=== PATIENT | female | born 1995 | race Caucasian/White ===

== ENCOUNTER 2024-03-03 08:13 | Observation (INO) | payer OTHER ==
[2024-03-03 08:51] LABS: Appearance Cloudy (Clear); Bacteria Many /HPF (None Seen); Bilirubin Negative (Negative); Blood Negative (Negative); Epithelial Cells Many /HPF (None Seen); Glucose, Urine Negative (Negative); Ketones Negative (Negative); Leukocyte Esterase Negative (Negative); Nitrite Negative (Negative); Protein,Urine Dip 30 (Negative); Specific Gravity 1.025 (1.005-1.030); Urobilinogen 0.2 mg/dL (0.2); WBC 21-50 /HPF (0-5)
[2024-03-03 09:01] LABS: Amphetamine,Urine NEGATIVE (NEGATIVE); Barbiturate,Urine NEGATIVE (NEGATIVE); Benzodiazepine,Urine NEGATIVE (NEGATIVE); Cocaine,Urine NEGATIVE (NEGATIVE); Methadone,Urine NEGATIVE (NEGATIVE); Opiate,Urine NEGATIVE (NEGATIVE); PCP,Urine NEGATIVE (NEGATIVE); THC,Urine POSITIVE (NEGATIVE)
[2024-03-03] MEDS: Lactated Ringers 1,000 ML IV ONE (09:05)
[2024-03-03] MEDS: IMODIUM 2 MG PO PRN (09:06)
[2024-03-03] MEDS: Zofran 4 MG/2 ML VIAL IV PRN (09:06)
[2024-03-03 09:20] LABS: Absolute Neutrophil Ct (ANC) 15.28 x10^3/uL (1.56-6.13); BASOPHIL % 0.2 % (0.1-1.2); Basophil (Absolute #) 0.03 x10^3/uL (0.01-0.08); Eosinophil % 0.2 % (0.7-5.8); Eosinophil (Absolute #) 0.03 x10^3/uL (0.04-0.36); Hematocrit 37.9 % (34.1-44.9); Hemoglobin 12.9 g/dL (11.2-15.7); IMMATURE GRAN # 0.14 x10^3u/L (0.001-0.031); IMMATURE GRAN % 0.8 % (0.001-0.429); Lymphocyte (Absolute #) 0.82 x10^3/uL (1.18-3.74); Lymphocytes % 4.8 % (19.3-51.7); Mean Cell Volume 86.1 fL (79.4-94.8); Mean Corpuscular Hemoglobin 29.3 pg (25.6-32.2); Mean Platelet Volume 9.9 fL (9.4-12.3); Monocyte (Absolute #) 0.86 x10^3/uL (0.24-0.86); Platelet Count 239 x10^3/uL (182-369); Red Cell Distribution Width 12.8 % (11.7-14.4); White Blood Count 17.2 x10^3/uL (3.98-10.04)
[2024-03-03 09:31] LABS: BILIRUBIN,TOTAL 0.3 mg/dL (0.2-1.3); Calcium 9.1 mg/dL (8.4-10.2); Creatinine 1 0.39 mg/dL (0.52-1.04); EST GLOMERULAR FILTRATION RATE 139.9 ML/MIN; Potassium 3.8 mmol/L (3.5-5.1); Total Protein 7.3 g/dL (6.3-8.2)
[2024-03-03 09:54] VITALS: RESP 18
[2024-03-03 10:11] LABS: INFLUENZA A NEGATIVE (NEGATIVE); INFLUENZA B NEGATIVE (NEGATIVE); RESPIRATORY SYNCTIAL VIRUS NEGATIVE (NEGATIVE); SARS-CoV-2 Xpert Express NEGATIVE (NEGATIVE)
[2024-03-03] MEDS ORDERED: TYLENOL 325 MG PO STA (10:22)
[2024-03-03] MEDS: Lactated Ringers 1,000 ML IV SCH (10:42)
[2024-03-03] MEDS: TYLENOL EXTRA STRENGTH 500 MG PO SCH (11:17)
[2024-03-03] MEDS: ROCEPHIN 2 GM/100 ML NACL 2 GM/100 ML IVPB IV SCH (11:24)
[2024-03-03 17:01] VITALS: BP 106/55; PULSE 80; TEMP 98.3; O2SAT 99
== END 2024-03-03 16:45 | disposition home or self-care (01) ==
LOC: OB 08:13
PROVIDERS: ADMIT Obstetrics & Gynecology; ATTEND Obstetrics & Gynecology
DX: Z34.83 Encounter for supervision of other normal pregnancy, third trimester (principal); Z3A.30 30 weeks gestation of pregnancy
CPT/HCPCS: 0241U; 36415; 80053; 80307; 81001; 85025; 87086; G0378; G0379; J0696; J2405; A9270-GY

== ENCOUNTER 2024-05-03 07:22 | Inpatient (IN) | payer OTHER ==
[2024-05-03] MEDS ORDERED: Lactated Ringers 1,000 ML IV ONE (08:28)
[2024-05-03] MEDS ORDERED: Ephedrine Sulfate 50 MG/ML IV PRN ×2 (08:28→17:00)
[2024-05-03] MEDS ORDERED: FENTANYL 2 MCG-BUPIV 0.125%-NS 250 ML Epidur 250 ML EPIDURAL SCH (08:30)
[2024-05-03] MEDS ORDERED: BRETHINE 1 MG/ML SQ PRN (17:00)
[2024-05-03] MEDS ORDERED: XYLOCAINE 1% HCL 20 ML MDV IJ PRN (17:00)
[2024-05-03] MEDS ORDERED: Zofran 4 MG/2 ML VIAL IV PRN (17:00)
[2024-05-03 19:01] LABS: Absolute Neutrophil Ct (ANC) 6.87 x10^3/uL (1.56-6.13); BASOPHIL % 0.3 % (0.1-1.2); Basophil (Absolute #) 0.03 x10^3/uL (0.01-0.08); Hematocrit 34.3 % (34.1-44.9); Hemoglobin 11.4 g/dL (11.2-15.7); IMMATURE GRAN # 0.09 x10^3u/L (0.001-0.031); IMMATURE GRAN % 0.9 % (0.001-0.429); Lymphocyte (Absolute #) 2.37 x10^3/uL (1.18-3.74); Lymphocytes % 22.7 % (19.3-51.7); Mean Cell Volume 84.1 fL (79.4-94.8); Mean Corpuscular Hemoglobin 27.9 pg (25.6-32.2); Mean Corpuscular Hgb Concent. 33.2 g/dL (32.2-35.5); Mean Platelet Volume 10.5 fL (9.4-12.3); Monocyte (Absolute #) 0.99 x10^3/uL (0.24-0.86); Monocytes % 9.5 % (4.7-12.5); Neutrophil % 65.6 % (34.0-71.1); Platelet Count 239 x10^3/uL (182-369); Red Blood Count 4.08 x10^6/uL (3.93-5.22); Red Cell Distribution Width 12.8 % (11.7-14.4); White Blood Count 10.5 x10^3/uL (3.98-10.04)
[2024-05-03 19:41] LABS: ABO TYPING A; Antibody Screen NEGATIVE (NEGATIVE); RH TYPING POSITIVE
[2024-05-03] MEDS: PITOCIN 30 UNITS/ LR 500 ML 30 UNITS/500 ML PLAST..BAG IV SCH (21:00)
[2024-05-03] MEDS: Lactated Ringers 1,000 ML IV SCH (21:13)
[2024-05-03 21:21] LABS: Amphetamine,Urine NEGATIVE (NEGATIVE); Barbiturate,Urine NEGATIVE (NEGATIVE); Benzodiazepine,Urine NEGATIVE (NEGATIVE); Cocaine,Urine NEGATIVE (NEGATIVE); Methadone,Urine NEGATIVE (NEGATIVE); Opiate,Urine NEGATIVE (NEGATIVE); PCP,Urine NEGATIVE (NEGATIVE); THC,Urine POSITIVE (NEGATIVE)
[2024-05-04] MEDS: STADOL 2 MG IV PRN (02:33)
[2024-05-04] MEDS: FENTANYL 2 MCG-BUPIV 0.125%-NS 250 ML Epidur 250 ML EPIDURAL SCH (06:48)
[2024-05-04] MEDS: Lactated Ringers 1,000 ML IV ONE (07:01)
[2024-05-04] MEDS ORDERED: Sensorcaine 0.25% 10 ML ONE ×2 (10:43→14:26)
[2024-05-04] MEDS ORDERED: Xylocaine-Mpf 2% 5 Ml Vial ONE (10:43)
[2024-05-04] MEDS ORDERED: SUBLIMAZE 100 MCG/2 ML ONE ×2 (10:47→14:24)
[2024-05-04] MEDS ORDERED: DEXMEDETOMIDINE 80 MCG/20ML-NS IV ONE (13:00)
[2024-05-04] MEDS ORDERED: Marcaine 0.5%/Epinephrine 10 ML ONE (13:01)
[2024-05-04 15:28] LABS: Appearance Clear (Clear); Bilirubin Negative (Negative); Blood Negative (Negative); Glucose, Urine Negative (Negative); Ketones Negative (Negative); Leukocyte Esterase Negative (Negative); Nitrite Negative (Negative); Ph 7.5 (4.6-8.0); Protein,Urine Dip Negative (Negative); Specific Gravity 1.015 (1.005-1.030); Urobilinogen 0.2 mg/dL (0.2)
[2024-05-04 15:29] LABS: Bacteria None Seen /HPF (None Seen); Epithelial Cells Rare /HPF (None Seen); RBC NONE SEEN /HPF (0-5); WBC NONE SEEN /HPF (0-5)
[2024-05-04] MEDS ORDERED: Restoril 15 MG PO PRN (17:10)
[2024-05-04] MEDS ORDERED: Anucort-HC SUPPOSITORY PR PRN (17:10)
[2024-05-04] MEDS ORDERED: CORTISONE 1% CREAM TP PRN (17:10)
[2024-05-04] MEDS ORDERED: Mylicon 80MG PO PRN (17:10)
[2024-05-04] MEDS ORDERED: Dulcolax 10 MG SUPP PR PRN (17:10)
[2024-05-04] MEDS ORDERED: Ambien 10 MG PO PRN (17:10)
[2024-05-04] MEDS: MOTRIN 400 MG PO PRN (17:42)
[2024-05-04] MEDS: Dermoplast Spray TP PRN (17:44)
[2024-05-04] MEDS: TUCKS TP PRN (17:44)
[2024-05-04] MEDS: Docusate Sodium 100 MG PO SCH (21:30)
[2024-05-04] MEDS: TYLENOL EXTRA STRENGTH 500 MG PO PRN (22:51)
[2024-05-04] MEDS: NORCO 5/325 MG PO PRN (23:22)
[2024-05-05 05:46] LABS: Absolute Neutrophil Ct (ANC) 11.75 x10^3/uL (1.56-6.13); BASOPHIL % 0.1 % (0.1-1.2); Basophil (Absolute #) 0.02 x10^3/uL (0.01-0.08); Eosinophil % 0.1 % (0.7-5.8); Eosinophil (Absolute #) 0.02 x10^3/uL (0.04-0.36); Hematocrit 33.7 % (34.1-44.9); Hemoglobin 11.1 g/dL (11.2-15.7); IMMATURE GRAN # 0.09 x10^3u/L (0.001-0.031); IMMATURE GRAN % 0.6 % (0.001-0.429); Lymphocyte (Absolute #) 2.35 x10^3/uL (1.18-3.74); Lymphocytes % 15.2 % (19.3-51.7); Mean Cell Volume 83.4 fL (79.4-94.8); Mean Corpuscular Hemoglobin 27.5 pg (25.6-32.2); Mean Corpuscular Hgb Concent. 32.9 g/dL (32.2-35.5); Mean Platelet Volume 10.2 fL (9.4-12.3); Monocyte (Absolute #) 1.25 x10^3/uL (0.24-0.86); Monocytes % 8.1 % (4.7-12.5); Neutrophil % 75.9 % (34.0-71.1); Platelet Count 240 x10^3/uL (182-369); Red Blood Count 4.04 x10^6/uL (3.93-5.22); White Blood Count 15.5 x10^3/uL (3.98-10.04)
--- NOTE | 2024-05-05 08:04 | PCM.NOTE ---
Date and Time: 05/05/24802 Subjective Assessment: ppd 1 sp pt resting in bed and doing well able to ambulate and tolerate diet vss afebrile abd; soft uterus; firm lochia; mild hgb; 11 a/p sp ppd 1 anticipate discharge home tomorrow should fu office 3 wks Objective Data Vital Signs: Vital Signs - 24 hr Temp Pulse Resp BP BP Pulse Ox 05/05/24 05:00 98.7 F 81 20 123/73 99 05/04/24 23:20 69 20 134/75 98 05/04/24 20:00 98.3 F 94 H 18 115/65 95 05/04/24 17:40 97.9 F 88 18 123/68 96 05/04/24 17:25 97.9 F 96 H 18 112/58 96 05/04/24 17:10 97.9 F 94 H 20 108/55 97 05/04/24 16:50 97.9 F 109 H 20 123/56 96 05/04/24 16:30 121 H 18 146/65 05/04/24 16:15 84 18 135/79 100 05/04/24 16:00 93 H 18 142/63 100 05/04/24 15:45 88 18 105/54 100 05/04/24 15:30 90 18 147/79 100 05/04/24 15:15 90 18 147/79 100 05/04/24 15:00 77 18 133/71 100 05/04/24 14:45 96 H 18 117/58 100 05/04/24 14:30 98 H 18 123/59 100 05/04/24 14:15 106 H 18 131/68 100 05/04/24 14:00 110 H 18 136/69 100 05/04/24 13:45 102 H 18 123/70 97 05/04/24 13:30 102 H 18 123/70 97 05/04/24 13:15 81 18 125/59 97 05/04/24 13:00 95 H 18 121/61 97 05/04/24 12:45 95 H 18 121/61 97 05/04/24 12:30 76 18 120/67 96 05/04/24 12:15 90 18 131/85 96 05/04/24 12:00 90 18 122/80 97 05/04/24 11:45 90 18 131/85 96 05/04/24 11:30 90 18 124/90 96 05/04/24 11:15 78 18 112/69 97 05/04/24 11:00 78 16 107/55 05/04/24 10:45 71 16 118/63 05/04/24 10:30 90 18 102/55 05/04/24 10:15 82 18 128/73 05/04/24 10:00 67 18 125/60 05/04/24 09:45 18 05/04/24 09:30 81 18 116/58 95 05/04/24 09:15 81 18 105/56 95 05/04/24 09:00 81 18 96 05/04/24 08:45 86 18 96 05/04/24 08:30 86 18 111/55 96 05/04/24 08:15 81 18 113/56 98 Pain Assessment - Last Documented Pain Intensity [Abdomen] 5 Pain Intensity [Right] 4 Pain Intensity 1 Pain Scale Used 0-10 Pain Scale Intake and Output: Intake & Output 05/02/24 05/03/24 05/04/24 05/05/24 11:59 11:59 11:59 11:59 Intake Total 2000 900 Output Total 900 500 Balance 1100 400 Weight 86.183 kg Lab Results: Lab Results-Last 24 Hours 05/04/24 05/05/24 05/05/24 Range/Units 13:00 05:45 07:39 WBC 15.5 H (3.98-10.04) x10^3/uL RBC 4.04 (3.93-5.22) x10^6/uL Hgb 11.1 L (11.2-15.7) g/dL Hct 33.7 L (34.1-44.9) % MCV 83.4 (79.4-94.8) fL MCH 27.5 (25.6-32.2) pg MCHC 32.9 (32.2-35.5) g/dL RDW 13.0 (11.7-14.4) % Plt Count 240 (182-369) x10^3/uL MPV 10.2 (9.4-12.3) fL Gran % 75.9 H (34.0-71.1) % Immature Gran % (Auto) 0.6 H (0.001-0.429) % Nucleat RBC Rel Count 0.0 (0.00-0.2) % Eos # (Auto) 0.02 L (0.04-0.36) x10^3/uL Immature Gran # (Auto) 0.09 H (0.001-0.031) x10^3u/L Absolute Lymphs (auto) 2.35 (1.18-3.74) x10^3/uL Absolute Monos (auto) 1.25 H (0.24-0.86) x10^3/uL Absolute Nucleated RBC 0.00 (0.00-0.012) x10^3u/L Lymphocytes % 15.2 L (19.3-51.7) % Monocytes % 8.1 (4.7-12.5) % Eosinophils % 0.1 L (0.7-5.8) % Basophils % 0.1 (0.1-1.2) % Absolute Granulocytes 11.75 H (1.56-6.13) x10^3/uL Basophils # 0.02 (0.01-0.08) x10^3/uL POC Glucometer 77 (74 to 106) mg/dL Urine Color Yellow (Yellow) Urine Appearance Clear (Clear) Urine pH 7.5 (4.6-8.0) Ur Specific [place] 1.015 (1.005-1.030) Urine Protein Negative (Negative) Urine Glucose (UA) Negative (Negative) mg/dL Urine Ketones Negative (Negative) Urine Blood Negative (Negative) Urine Nitrite Negative (Negative) Urine Bilirubin Negative (Negative) Urine Urobilinogen 0.2 (0.2) mg/dL Ur Leukocyte Esterase Negative (Negative) Urine Microscopic RBC NONE SEEN (0-5) /HPF Urine Microscopic WBC NONE SEEN (0-5) /HPF Ur Epithelial Cells Rare (None Seen) /HPF Urine Bacteria None Seen (None Seen) /HPF Urine Culture Reflexed ORDERED SEPARATELY (NO) Assessment/Plan (1) Vaginal delivery Current Visit: Yes Status: Acute Code(s): O80 - ENCOUNTER FOR FULL-TERM UNCOMPLICATED DELIVERY
[2024-05-05 08:12] LABS: RPR Non Reactive (Non Reactive)
[2024-05-05] MEDS: FERREX 150 PO SCH (13:39)
[2024-05-05] MEDS: Adacel Vial IM ONE (21:34)
--- NOTE | 2024-05-05 22:00 | PCM.DS ---
Discharge Summary Date of Admission: 05/04/24 07:54 Admitting Physician: REGIS VILLALOBOS DO Consults: Consults on Case 05/03/24 08:29 Notify Anesthesia Provider PRN 05/05/24 09:00 Navigation ONCE Primary Care Provider: NO FAMILY DOCTOR Allergies Allergies No Known Drug Allergies Allergy (Verified 05/03/24 19:49) Hospital Summary - Hospital Course Hospital Course: pt admitted on may 03 at 39 2/7 wks gestation for low dose pitocin induction and subsequently delivered live baby boy via without complication on may 04 without complication with no perineal tear. wt of baby was at 9.6 pounds. during period did well able to ambulate and tolerated diet with stable vitals. hgb stable at 11. at this time pt stable for discharge on may 06 and was advised to fu in office in 3 wks for care. all questions answered to her satisfaction and at this time stable for discharge on may 06 - Vitals & Intake/Output Vital Signs: Vital Signs Temperature 98.2 F 05/05/24 20:00 Pulse Rate 79 05/05/24 20:00 Respiratory Rate 18 05/05/24 20:00 Blood Pressure 119/63 05/05/24 20:00 O2 Sat by Pulse Oximetry 97 05/05/24 20:00 Intake & Output: Intake & Output 05/03/24 05/04/24 05/05/24 05/06/24 11:59 11:59 11:59 11:59 Intake Total 2000 900 500 Output Total 900 500 Balance 1100 400 500 Weight 86.183 kg - Lab Result Diagrams: 05/05/24 05:45 Lab Results-Last 24 Hrs: Lab Results-Last 24 Hours 05/03/24 05/05/24 05/05/24 Range/Units 18:54 05:45 07:39 WBC 15.5 H (3.98-10.04) x10^3/uL RBC 4.04 (3.93-5.22) x10^6/uL Hgb 11.1 L (11.2-15.7) g/dL Hct 33.7 L (34.1-44.9) % MCV 83.4 (79.4-94.8) fL MCH 27.5 (25.6-32.2) pg MCHC 32.9 (32.2-35.5) g/dL RDW 13.0 (11.7-14.4) % Plt Count 240 (182-369) x10^3/uL MPV 10.2 (9.4-12.3) fL Gran % 75.9 H (34.0-71.1) % Immature Gran % (Auto) 0.6 H (0.001-0.429) % Nucleat RBC Rel Count 0.0 (0.00-0.2) % Eos # (Auto) 0.02 L (0.04-0.36) x10^3/uL Immature Gran # (Auto) 0.09 H (0.001-0.031) x10^3u/L Absolute Lymphs (auto) 2.35 (1.18-3.74) x10^3/uL Absolute Monos (auto) 1.25 H (0.24-0.86) x10^3/uL Absolute Nucleated RBC 0.00 (0.00-0.012) x10^3u/L Lymphocytes % 15.2 L (19.3-51.7) % Monocytes % 8.1 (4.7-12.5) % Eosinophils % 0.1 L (0.7-5.8) % Basophils % 0.1 (0.1-1.2) % Absolute Granulocytes 11.75 H (1.56-6.13) x10^3/uL Basophils # 0.02 (0.01-0.08) x10^3/uL POC Glucometer 77 (74 to 106) mg/dL RPR Non Reactive (Non Reactive) Micro Results-Entire Visit: Microbiology 05/04/24 13:00 Urine Culture - Preliminary Urine, Indwelling Catheter NO GROWTH TO DATE Final Diagnosis/Problem List - Final Discharge Diagnosis/Problem (1) Vaginal delivery Current Visit: Yes Status: Acute Code(s): O80 - ENCOUNTER FOR FULL-TERM UNCOMPLICATED DELIVERY - Discharge Disposition: Home, Self-Care Condition: Stable Prescriptions: No Action Ferrous Sulfate [Iron] 325 mg PO DAILY Valacyclovir HCl [Valacyclovir] 500 mg PO DAILY Hydroxyzine HCl 25 mg [Atarax 25 mg] 25 mg PO DAILY Fluoxetine HCl [Prozac] 20 mg PO DAILY Follow up with: DOCTOR,NO FAMILY [Primary Care Provider] - REGIS VILLALOBOS DO [ACTIVE STAFF] - 3 weeks (should fu in office in 3 wks should call me for any issues that may arise upon discharge)
[2024-05-06 12:50] VITALS: BP 111/64; PULSE 77; RESP 16; TEMP 97.9; O2SAT 96
== END 2024-05-06 18:30 | disposition home or self-care (01) | DRG 807 ==
LOC: OB 07:54 → OBSVTOIN 05-04 07:54
PROVIDERS: ADMIT Obstetrics & Gynecology; ATTEND Obstetrics & Gynecology
PROC: 10E0XZZ Delivery of Products of Conception, External Approach (ICD-10-PCS; principal; 2024-05-04)
DX: O80 Encounter for full-term uncomplicated delivery (principal); Z37.0 Single live birth; Z3A.39 39 weeks gestation of pregnancy
CPT/HCPCS: 36415; 59409; 80307; 81001; 82947; 85025; 86592; 86850; 86900; 86901; 87086; 90715; 96372; G0378; G0379; J0595; J2590; J3010; A9270-GY

== ENCOUNTER 2024-07-13 06:52 | Day surgery (SDC) | payer OTHER ==
[2024-07-13] MEDS: Lactated Ringers 1,000 ML IV SCH (07:42)
[2024-07-13] MEDS: CEFAZOLIN 2 GM/100 ML NaCl 2 GM/100 ML IVPB IV SCH (07:42)
[2024-07-13 07:49] LABS: HCG URINE TEST NEGATIVE (NEGATIVE)
[2024-07-13] MEDS ORDERED: propofoL IV ONE ×2 (09:22→10:52)
[2024-07-13] MEDS ORDERED: Sensorcaine 0.25% 10 ML ONE (09:34)
[2024-07-13] MEDS ORDERED: Versed 2 MG/2 ML Injection ONE (09:35)
[2024-07-13] MEDS ORDERED: ROCURONIUM BROMIDE IV ONE (09:36)
[2024-07-13] MEDS ORDERED: dexAMETHasone sodium phosphate ONE (09:36)
[2024-07-13] MEDS ORDERED: Zofran 4 MG/2 ML VIAL ONE (09:36)
[2024-07-13] MEDS ORDERED: SUBLIMAZE 100 MCG/2 ML ONE ×2 (10:18→10:46)
[2024-07-13] MEDS ORDERED: Lactated Ringers 1,000 ML IV ONE (10:20)
[2024-07-13 11:53] VITALS: O2SAT 97
[2024-07-13 12:25] VITALS: BP 109/57; PULSE 60; RESP 18; TEMP 97.5
--- NOTE | 2024-07-15 10:58 | OP ---
SURGERY DATE/TIME: 07/13/2024 [id number] PREOPERATIVE DIAGNOSIS: Contraceptive care, multiparity desiring tubal sterilization. POSTOPERATIVE DIAGNOSIS: Contraceptive care, multiparity desiring tubal sterilization. PROCEDURE: Laparoscopic bilateral salpingectomy. SURGEON: Damien Vilalfana DO CERTIFIED PEST CONTROL TECHNICIAN: Malu Huston. ANESTHESIA: General. QUANTITATIVE BLOOD LOSS: Minimal. COMPLICATIONS: None. INDICATIONS: The risks, benefits, indications, and alternatives of the procedure were reviewed with the patient prior to the procedure. Patient understood the risk of infection, bleeding, bowel injury, bladder injury, ureteral injury, pelvic infection, thromboembolic disorder associated with the surgery, and desires to have the surgery to alleviate her issues. The patient was also given all forms of control options and understands the possible risk of future and ectopic that still may occur. DESCRIPTION OF PROCEDURE AND FINDINGS: From this point, patient was taken to the operating room, given general sedation, and placed in the supine position where she was prepped and draped in the usual sterile fashion. A 5 mm skin incision was made in the umbilical fold where a 5 mm trocar and sleeve were advanced under direct visualization with 4L of CO2 gas that was obtained. An additional incision was made in the left middle quadrant region where a 5 mm incision was made and a 5 mm trocar and sleeve were advanced under direct visualization. An additional third incision was made 2 cm above the symphysis pubis where an 8 mm incision was made and 8 mm trocar and sleeve were advanced under direct visualization. A survey of the patient's pelvis and abdomen revealed entirely normal anatomy. There was no gross abnormality that was noted within the pelvic region. From this point, the right fallopian tube was then elevated with a grasper, and the LigaSure was used to clamp, coagulate, and cut along the mesosalpinx toward the cornual region where at that point it was excised in its entirety. Hemostasis was achieved. Same procedure was performed on the left side where the left fallopian tube was elevated with the grasper, and the LigaSure was placed on the mesosalpinx where it was clamped, coagulated, and cut, taking down towards the cornual region and excised in its entirety. Hemostasis was obtained. From this point, there was no bleeding that was noted in the pelvic region. At this point, all instruments were removed from the patient's abdominal region, and the incisions were closed with 4-0 Monocryl suture with subsequent Dermabond on the skin. From this point, the patient was then taken out of anesthesia and was then taken to recovery room in stable condition. All instrument and laps were accounted for x2.
== END 2024-07-13 12:11 | disposition home or self-care (01) ==
LOC: SDC 06:52
PROVIDERS: ATTEND Obstetrics & Gynecology
DX: Z30.2 Encounter for sterilization (principal)
CPT/HCPCS: 58661; 81025; J0690; J1100; J2250; J2405; J2704; J3010